=== PATIENT | male | born 1945 | race Caucasian/White ===

== ENCOUNTER 2022-09-01 12:33 | Outpatient (CLI) | payer MEDICARE | END 2022-09-01 23:59 | disposition home or self-care (01) | LOC: RAD 12:33 | PROVIDERS: ATTEND Family Medicine | DX: R42 Dizziness and giddiness (principal); J34.89 Other specified disorders of nose and nasal sinuses | CPT/HCPCS: 70551 ==

== ENCOUNTER → 2023-03-30 | Outpatient (CLI) | payer MEDICARE | END | disposition home or self-care (01) | LOC: RAD 09:47 | PROVIDERS: ATTEND Family Medicine | DX: M77.8 Other enthesopathies, not elsewhere classified (principal); M25.522 Pain in left elbow | CPT/HCPCS: 73221 ==